=== PATIENT | female | born 1945 ===

== ENCOUNTER 2017-01-24 14:22 | Inpatient (IN) | payer MEDICARE ==
--- NOTE | ~2017-01-24 | EGD ---
EGD REPORT [facility] [address] [address] NAME: KENZIE ALICIA : [birth year] STATUS : ADM Jani PAT#: [id number] AGE: 71 ADM/REG DATE : 01/24/17 MR#: [id number] REPORT SERV DATE: 01/25/17 DICTATED BY: FRANCISCO GABRIEL DATE: 01/25/17 REPORT STATUS : Draft TRANSCRIBED BY: [facility] DATE: 01/25/17 Endoscopy Center Patient Name: Kenzie Alicia Date of : 1945 Attending MD: FRANCISCO GABRIEL MD Procedure Date No Time: 01/25/2017 Procedure: Upper GI endoscopy Indications: Melena Referring MD: MARCIA GARCIA MD Medicines: Monitored Anesthesia Care Complications: No immediate complications. Estimated blood loss: None. Procedure: Pre-Anesthesia Assessment: - ASA Grade Assessment: III - A patient with severe systemic disease. After obtaining informed consent, the endoscope was passed under direct vision. Throughout the procedure, the patient's blood pressure, pulse, and oxygen saturations were monitored continuously. The GIF H190 [id number] was introduced through the and advanced to the. The GIF H190 [id number] was introduced through the mouth, and advanced to the afferent and efferent jejunal loops. The upper GI endoscopy was accomplished without difficulty. The patient tolerated the procedure well. Findings: The examined esophagus was normal. No gross lesions were noted in the entire examined stomach. One non-bleeding cratered ulcer with no stigmata of bleeding was found distal to the gastrojejunal anastomosis. The lesion was 8 mm in largest dimension. There was no persistent bleeding. The exam was otherwise without abnormality. 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 - The examination was otherwise normal. Recommendation: - Return patient to hospital [facility] for ongoing care. - Clear liquid diet today. - Use Protonix (pantoprazole) 40 mg PO BID for 8 weeks. - Return to GI clinic in 2 months. Procedure Code(s): --- Professional --- 47260, Esophagogastroduodenoscopy, flexible, transoral; diagnostic, including collection of specimen(s) by brushing or washing, when performed (separate procedure) EGD REPORT [facility] [address] [place], [place] [address] [place]. [address] NAME: KENZIE ALICIA : [birth year] STATUS : ADM Jani PAT#: [id number] AGE: 71 ADM/REG DATE : 01/24/17 MR#: [id number] REPORT SERV DATE: 01/25/17 DICTATED BY: FRANCISCO GABRIEL DATE: 01/25/17 REPORT STATUS : Draft TRANSCRIBED BY: [facility] DATE: 01/25/17 Diagnosis Code(s): --- Professional --- K28.9, Gastrojejunal ulcer, unspecified as acute or chronic, without hemorrhage or perforation K92.1, Melena CPT copyright 2013 [employer]. All rights reserved. The codes documented in this report are preliminary and upon medical billing coder review may be revised to meet current compliance requirements. Francisco Gabriel MD FRANCISCO GABRIEL MD 01/25/2017 10:48 AM This report has been signed electronically. Number of Addenda: 0 Note Initiated On: 01/25/2017 10:16 AM Scope Withdrawal Time 0 hours 0 minutes 0 seconds [address] [facility] [place] [address]
--- NOTE | ~2017-01-24 | CN ---
Consultation Report [facility] [address] [place]. [address] NAME: KENZIE ALICIA : [birth year] STATUS : ADM Jani PAT#: [id number] AGE: 71 ADM/REG DATE : 01/24/17 MR#: [id number] REPORT SERV DATE: 01/25/17 DICTATED BY: MICHAEL ARIAS DATE: 01/25/17 REPORT STATUS : Draft TRANSCRIBED BY: MODL DATE: 01/25/17 GI CONSULTATION DATE OF CONSULTATION: 01/25/2017 REASON FOR CONSULTATION: Evaluation and management of melena, symptomatic anemia. HISTORY OF PRESENT ILLNESS: Ms. Kenzie Alicia is a pleasant 71-year-old female patient, who has been seen by Dr. Issac Navarro in the past, who presented to [facility] after being seen by her primary care physician, Dr. Diop yesterday on 01/24/2017. Her chief complaint was dark stools, shortness of breath on exertion, and weakness. She states that she has been having these issues since 01/21/2017, where she began to notice black stools and inability to walk within normal distance that she is used to without becoming short of breath. This progressively worsened to the point she could only take a few steps without having to rest. She went to see Dr. Diop yesterday. Her labs returned with a hemoglobin of 7.9 in his office with a noted hemoglobin last 05/2016 of 12.9. She states that, she has seen also just a very small amount of bright red blood. She has not had any epigastric abdominal pain. No nausea. No vomiting. She has had some intermittent reflux that she takes Pepcid for. She has had exertional shortness of breath as well as dyspnea. No recent constipation or diarrhea. She had dizziness upon standing. She has a history of a Whipple procedure in 2009 for what she describes as a precancerous cyst. I have discussed with her. We will plan to do upper endoscopy today. Risks, benefits, alternatives, and complications were detailed for her to include, but not limited to risk of bleeding, perforation, infection, reaction to medication, as well as cardiac and pulmonary side effects, and she is agreeable to proceed. 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 SOCIAL HISTORY: She denies alcohol, tobacco, or illicits. FAMILY HISTORY: Noncontributory from a GI standpoint. ALLERGIES: EUCALYPTUS, ANTIDEPRESSANTS, AND COLD MEDICATIONS. HOME MEDICATIONS: Aspirin 325 mg a day as needed, Pepcid daily as needed, levothyroxine, OptiFlex. REVIEW OF SYSTEMS: A 10-point review of systems has been obtained with pertinent positives being addressed in the history of present illness. PERTINENT LABORATORY DATA: Hemoglobin presently is 7, hematocrit is 21.0. Magnesium 2.5, phosphorus of 2.9. Other labs are pending. Consultation Report [address] [place]. [address] NAME: KENZIE ALICIA : [birth year] STATUS : ADM Jani PAT#: [id number] AGE: 71 ADM/REG DATE : 01/24/17 MR#: [id number] REPORT SERV DATE: 01/25/17 DICTATED BY: MICHAEL ARIAS DATE: 01/25/17 REPORT STATUS : Draft TRANSCRIBED BY: AMY DATE: 01/25/17 PHYSICAL EXAMINATION: VITAL SIGNS: Temperature 97.8, pulse 68, respirations 18, blood pressure 107/55. GENERAL: Reveals an alert female, resting in bed with no focal deficits. GENERAL: Cooperative, in no apparent distress. She is awake, alert, and oriented x3. She has complaints of shortness of breath on exertion. HEAD, EARS, EYES, NOSE, AND THROAT: Anicteric notable, conjunctiva pallor. Pupils are equal, round, reactive to light and accommodation. Normocephalic and atraumatic. NECK: No JVD. No palpable nodes. Supple. LUNGS: Decreased throughout. Normal respiratory effort exhibited. Equal expansion. CARDIOVASCULAR SYSTEM: Regular rate and rhythm. ABDOMEN: Soft, nondistended, nontender with active bowel sounds in all four quadrants. EXTREMITIES: No edema. Normal distal pulses. SKIN: Warm, dry, and intact. ASSESSMENT/PLAN: 1. Melena, onset 01/21/2017. 2. Acute blood loss anemia/symptomatic. 3. Exertional dyspnea. 4. History of pancreatic cyst, status post Whipple 2009. PLAN: 1. PPI. 2. EGD. 3. Transfuse. 4. Check CBC, BMP. We will follow. DG/MODL JUNIE Mariano / [id number] CC: MD Chirag Cox M.D.
--- NOTE | ~2017-01-24 | HP ---
History And Physical [place] [id number] [place]. [address] NAME: KILO ALICIA : [birth year] STATUS : ADM Jani PAT#: [id number] AGE: 71 ADM/REG DATE : 01/24/17 MR#: [id number] REPORT SERV DATE: 01/24/17 DICTATED BY: JORDAN GRAHAM DATE: 01/24/17 REPORT STATUS : Draft TRANSCRIBED BY: MODL DATE: 01/24/17 DATE OF ADMISSION: 01/24/2017 REASON FOR ADMISSION: Black stools since Tuesday. HISTORY OF PRESENT ILLNESS: A 71-year-old white female, history of diverticulitis, status post colectomy; history of Whipple procedure secondary to pancreatic cyst; hypothyroid; GERD, presenting with black stools since Tuesday. The patient states that she had three episodes of black stools. There were some streaks of blood with the stools, the patient denies any gross blood or clots associated with dark stools. She denies any change in bowel habits or stool caliber. She denies any abdominal pain or fever. The patient denies any rectal pain, epistaxis, anorexia, weight loss, or nausea and vomiting. She does admit to having lightheadedness associated with this black stools. She denies any history of hemorrhoids or alcoholism. PAST MEDICAL HISTORY: As above. MEDICATIONS: The patient takes, 1. Aspirin 325 mg p.o. daily p.r.n. 2. Pepcid 20 mg p.o. daily p.r.n. 3. Levothyroxine 50 mcg p.o. daily. 4. OptiFlex one capsule p.o. daily. 5. OptiFlex-G one capsule p.o. at bedtime. ALLERGIES: EUCALYPTUS, ANTIDEPRESSANTS, COLD MEDICATION. SOCIAL HISTORY: Nonsmoker, nondrinker. FAMILY HISTORY: Significant for hypertension and CVA. REVIEW OF SYSTEMS: 10-point review of systems conducted, which were negative except for above complaints. PHYSICAL EXAMINATION: VITAL SIGNS: Temperature of 97.9, pulse 69, respiratory rate 18, BP 123/59, O2 saturation 100% on room air. LABS: None. ASSESSMENT AND PLAN: 1. Black stools x3 days. Need to rule out peptic ulcer disease, gastritis, AV malformation, or internal hemorrhoids. We will have GI on consult. We will do hemoglobin and hematocrit q.4 hours x6. If hemoglobin is less than 7, will transfuse two units of packed RBC. The fact that the patient is having dizziness associated with black stools, we will start the patient on NS at 80 mL an hour. Keep the patient on clear liquids. History And Physical [place] [address] [place]. [address] NAME: KILO ALICIA : [birth year] STATUS : ADM Jani PAT#: [id number] AGE: 71 ADM/REG DATE : 01/24/17 MR#: [id number] REPORT SERV DATE: 01/24/17 DICTATED BY: JORDAN GRAHAM DATE: 01/24/17 REPORT STATUS : Draft TRANSCRIBED BY: AMY DATE: 01/24/17 2. Hypothyroid. Continue the levothyroxine. Check TSH. 3. GI/DVT prophylaxis. We will give her SCDs and Protonix 40 mg IV b.i.d. MARTHA/AMY Jordan Graham MD / [id number] CC: MD Chirag Cox M.D.
--- NOTE | ~2017-01-24 | DS ---
Discharge Summary [facility] [address] [place]. [address] NAME: KILO ALICIA : 47 STATUS : DIS IN PAT#: [id number] AGE: 71 ADM/REG DATE : 01/25/17 MR#: [id number] REPORT SERV DATE: 01/27/17 DICTATED BY: ABRAHAM THRASHER DATE: 01/26/17 REPORT STATUS : Draft TRANSCRIBED BY: MODL DATE: 01/26/17 ADMISSION DATE: 01/25/2017 DISCHARGE DATE: 01/26/2017 CONDITION ON DISCHARGE: Stable. DISPOSITION: Discharged to home. DIAGNOSES ON DISCHARGE: 1. Black stools or melena secondary to probably and intermittently bleeding jejunal ulcer - this has completely resolved. The patient's hemoglobin and hematocrit are stable at this time. The patient has undergone an upper endoscopy or EGD by Dr. Hernandez at this time and she feels well. 2. Diagnoses that are chronic and stable at this time include history of Whipple procedure for a pancreatic cyst, which is stable; history of gastrojejunostomy as part of the above procedure, which is stable. 3. History of partial colectomy for diverticulitis, this is stable. 4. Hypothyroidism, this is also stable. CONSULTATIONS OBTAINED DURING HOSPITALIZATION: Include GI consult. Procedure that the patient underwent while in the hospital include an EGD performed by Dr. Hernandez on 01/25/2017. EGD revealed that her examined esophagus was normal. No gross lesions were noted in the entire stomach. One nonbleeding cratered ulcer with no stigmata of bleeding was found distal to the GJ anastomosis in the jejunal area and the lesion was 8 mm in largest dimension. No bleeding. The patient after the procedure came back up in a stable condition and her diet was advanced from liquids to soft solids. She has been tolerating diet fairly well without any nausea, vomiting, or abdominal pain, and hence, she is being sent home in stable condition with advice to resume her home medications. The only additional medications given to her that is new during this hospitalization is Protonix 40 mg p.o. q.a.m. to be taken 30 minutes before breakfast as the patient is particular about the time that she takes her medications. She will continue levothyroxine 50 mcg once a day and also continue taking her [id number]-kjiousc famotidine that she takes on a p.r.n. basis. She also takes glucosamine chondroitin for the arthritis and I have advised the patient to continue this also. Other than that, the patient is pretty healthy and is being discharged home in stable condition. I have the following most recent lab results on this patient on 01/26/2017, her CBC shows WBC of 6.2, hemoglobin 10.1, hematocrit 29.9, and platelet count of 295. They are all stable. Electrolyte profile shows completely normal electrolytes, BUN and creatinine, and hence, I am sending the patient home in a stable condition. I have spent about 35 minutes in coordinating discharge care of this patient including face- to-face encounter and summarizing this discharge. Discharge Summary [address] [place]. [address] NAME: KILO ALICIA : 47 STATUS : DIS IN [facility]#: [id number] AGE: 71 ADM/REG DATE : 01/25/17 MR#: [id number] REPORT SERV DATE: 01/27/17 DICTATED BY: ABRAHAM THRASHER DATE: 01/26/17 REPORT STATUS : Draft TRANSCRIBED BY: AMY DATE: 01/26/17 RRVerónica/AMY Abraham Thrasher M.D. / [id number] CC: Steven Gibson M.D.
[2017-01-24 13:11] LABS: MEAN CORPUS HGB CONC 33.8 g/dL (32.0-36.0); MEAN CORPUSCULAR HEMOGLOB 29.2 pg (26.0-34.0); MEAN CORPUSCULAR VOLUME 86.4 fL (80-100); MEAN PLATELET VOLUME 8.3 fL (6.8-10.8); PLATELET COUNT 284 10/3/uL (150-400); RBC DISTRIBUTION WIDTH 13.6 % (12.0-16.0); WHITE BLOOD CELLS 6.9 10/3/uL (4.5-10.5)
[2017-01-24 13:13] LABS: HEMATOCRIT 23.3 % (36.0-48.0); HEMOGLOBIN 7.9 g/dL (12.0-16.0)
[2017-01-24 13:31] LABS: ALBUMIN 3.5 G/DL (3.5-5.0); BUN (BLOOD UREA NITROGEN) 20 MG/DL (6-23); CALCIUM, SERUM 8.1 MG/DL (8.5-10.4); CHLORIDE, SERUM 110 MMOL/L (96-112); CREATININE 0.79 MG/DL (0.55-1.02); GFR AFRICAN AMERICAN 88 ML/MIN (>=60); GFR NON AFRICAN AMERICAN 76 ML/MIN (>=60); GLUCOSE, SERUM 92 MG/DL (60-99); SGOT(AST) 16 U/L (5-40); SGPT(ALT) 15 U/L (5-65); SODIUM, SERUM 145 MMOL/L (135-148); TOTAL PROTEIN 5.6 G/DL (6.0-8.5)
[2017-01-24 13:32] LABS: A/G RATIO 1.7 (0.7-1.9); ALKALINE PHOSPHATASE 81 U/L (45-117); CO2 (CARBON DIOXIDE) 27 MMOL/L (24-34); GLOBULIN 2.1 G/DL (2.5-4.1); POTASSIUM, SERUM 3.8 MMOL/L (3.5-5.3); TOTAL BILIRUBIN 0.4 MG/DL (0-1.2)
[~2017-01-24 14:22] MED LIST: ACIDOPHILU1 PO; BENTYL10 PO; CALCIUM; CALCIUM MAGNESIUM PO; CALCIUM PO; CALGLUCTAB PO; DICYCLOMINE; DOCUSOFT S100 MG PO; FL250 PO; FLAGYL PO; LEVAQUIN5T PO; LEVAQUIN750 MG PO; LEXAPRO10 PO; MEVACOR40 MG PO; PCET PO; PREV15 PO; PREVACID; PRILOSEC OTC20 MG PO; PRILOSEC40 MG PO; VITAMIN D; VITD PO; X25 PO; ZOFRAN4 PO
[2017-01-24] MEDS ORDERED: LEVOTHYROXIN50 MCG PO (14:53)
[2017-01-24] MEDS ORDERED: PEP20 PO (14:54)
[2017-01-24] MEDS ORDERED: [UNRECOGNIZED DRUG - CODE] PO (14:54)
[2017-01-24] MEDS ORDERED: ASABAYER PO (14:55)
[2017-01-24] MEDS ORDERED: [UNRECOGNIZED DRUG - CODE] PO (14:55)
[2017-01-24 15:29] LABS: HEMATOCRIT 23.7 % (36.0-48.0); HEMOGLOBIN 8.1 g/dL (12.0-16.0)
[2017-01-24 17:44] LABS: PHOSPHORUS, SERUM 2.9 MG/DL (2.5-4.5); ULTRASENSITIVE TSH 2.28 MCIU/ML (0.358-3.740)
[2017-01-24 18:52] LABS: HEMOGLOBIN 7.2 g/dL (12.0-16.0)
[2017-01-25 09:20] LABS: BASOPHILS 0.7 %; BASOPHILS ABSOLUTE 0.04 10/3/uL (0.0-0.16); EOSINOPHILS 2.3 %; EOSINOPHILS ABSOLUTE 0.14 10/3/uL (0.0-0.53); IMMATURE GRANULOCYTES 0.2 %; IMMATURE GRANULOCYTES ABSOLUTE 0.01 10/3/uL (0.0-0.11); LYMPHOCYTES 24.7 %; LYMPHOCYTES ABSOLUTE 1.48 10/3/uL (0.67-4.30); MEAN CORPUS HGB CONC 34.9 g/dL (32.0-36.0); MEAN CORPUSCULAR HEMOGLOB 30.1 pg (26.0-34.0); MEAN CORPUSCULAR VOLUME 86.4 fL (80-100); MEAN PLATELET VOLUME 9.8 fL (9.2-13.0); MONOCYTES 6.5 %; MONOCYTES ABSOLUTE 0.39 10/3/uL (0.21-1.20); NEUTROPHILS 65.6 %; NEUTROPHILS ABSOLUTE 3.93 10/3/uL (2.02-8.40); PLATELET COUNT 289 10/3/uL (150-400); RBC DISTRIBUTION WIDTH 13.4 % (12.0-16.0)
[2017-01-25 09:21] LABS: HEMOGLOBIN 10.4 g/dL (12.0-16.0); RED CELL COUNT 3.45 10/6/uL (4.0-5.6)
[2017-01-25 09:22] LABS: HEMATOCRIT 29.8 % (36.0-48.0); MANUAL DIFF NO %
[2017-01-25 09:28] LABS: INTERNATIONAL NORMAL RATI 1.1 UNITS (-); PROTIME (NOT ORD) 14.3 SEC (12.0-14.5)
[2017-01-25 09:36] LABS: ALBUMIN 3.2 G/DL (3.5-5.0); ALKALINE PHOSPHATASE 90 U/L (45-117); CALCIUM, SERUM 8.4 MG/DL (8.5-10.4); CHLORIDE, SERUM 109 MMOL/L (96-112); CO2 (CARBON DIOXIDE) 26 MMOL/L (24-34); CREATININE 0.89 MG/DL (0.55-1.02); GFR AFRICAN AMERICAN 76 ML/MIN (>=60); GFR NON AFRICAN AMERICAN 66 ML/MIN (>=60); GLUCOSE, SERUM 88 MG/DL (60-99); PHOSPHORUS, SERUM 2.8 MG/DL (2.5-4.5); POTASSIUM, SERUM 3.8 MMOL/L (3.5-5.3); SGOT(AST) 19 U/L (5-40); SGPT(ALT) 18 U/L (5-65); SODIUM, SERUM 142 MMOL/L (135-148)
[2017-01-25 09:37] LABS: A/G RATIO 1.1 (0.7-1.9); BUN (BLOOD UREA NITROGEN) 12 MG/DL (6-23); GLOBULIN 2.8 G/DL (2.5-4.1); TOTAL BILIRUBIN 1.8 MG/DL (0-1.2)
[2017-01-26 05:15] LABS: BASOPHILS 0.3 %; BASOPHILS ABSOLUTE 0.02 10/3/uL (0.0-0.16); EOSINOPHILS 4.2 %; EOSINOPHILS ABSOLUTE 0.26 10/3/uL (0.0-0.53); HEMATOCRIT 29.9 % (36.0-48.0); HEMOGLOBIN 10.1 g/dL (12.0-16.0); IMMATURE GRANULOCYTES 0.5 %; IMMATURE GRANULOCYTES ABSOLUTE 0.03 10/3/uL (0.0-0.11); LYMPHOCYTES ABSOLUTE 1.55 10/3/uL (0.67-4.30); MEAN CORPUS HGB CONC 33.8 g/dL (32.0-36.0); MEAN CORPUSCULAR HEMOGLOB 29.6 pg (26.0-34.0); MEAN CORPUSCULAR VOLUME 87.7 fL (80-100); MEAN PLATELET VOLUME 9.3 fL (9.2-13.0); MONOCYTES 7.3 %; MONOCYTES ABSOLUTE 0.45 10/3/uL (0.21-1.20); NEUTROPHILS 62.7 %; NEUTROPHILS ABSOLUTE 3.88 10/3/uL (2.02-8.40); PLATELET COUNT 295 10/3/uL (150-400); RBC DISTRIBUTION WIDTH 13.6 % (12.0-16.0); RED CELL COUNT 3.41 10/6/uL (4.0-5.6); WHITE BLOOD CELLS 6.2 10/3/uL (4.5-10.5)
[2017-01-26 05:18] LABS: MANUAL DIFF NO %
[2017-01-26 05:27] LABS: BUN (BLOOD UREA NITROGEN) 13 MG/DL (6-23); CALCIUM, SERUM 8.6 MG/DL (8.5-10.4); CHLORIDE, SERUM 112 MMOL/L (96-112); CO2 (CARBON DIOXIDE) 28 MMOL/L (24-34); CREATININE 0.89 MG/DL (0.55-1.02); GFR AFRICAN AMERICAN 76 ML/MIN (>=60); GFR NON AFRICAN AMERICAN 66 ML/MIN (>=60); POTASSIUM, SERUM 4.4 MMOL/L (3.5-5.3); SODIUM, SERUM 147 MMOL/L (135-148)
[2017-01-26 05:28] LABS: GLUCOSE, SERUM 106 MG/DL (60-99)
[2017-01-26] MEDS ORDERED: PROTONIX PO (10:38)
== END 2017-01-26 14:14 | disposition home or self-care (01) | DRG 378 ==
LOC: 7NO 14:22
PROVIDERS: Hospitalist; Internal Medicine; Internal Medicine Gastroenterology; Nurse Practitioner Family
PROC: 30233N1 Transfusion of Nonautologous Red Blood Cells into Peripheral Vein, Percutaneous Approach (ICD-10-PCS; 2017-01-25)
PROC: 0DJ08ZZ Inspection of Upper Intestinal Tract, Via Natural or Artificial Opening Endoscopic (ICD-10-PCS; principal; 2017-01-25 10:28)
DX: K28.4 Chronic or unspecified gastrojejunal ulcer with hemorrhage (principal); D62 Acute posthemorrhagic anemia; E03.9 Hypothyroidism, unspecified; Z79.82 Long term (current) use of aspirin; K57.90 Diverticulosis of intestine, part unspecified, without perforation or abscess without bleeding; Z98.890 Other specified postprocedural states
CPT/HCPCS: 36415; 80048; 80053; 83735; 84100; 84443; 85014; 85018; 85025; 85027; 85610; 85730; 86850; 86900; 86901; 86920; A9270-GY; C9113; P9016